=== PATIENT | female | born 2000 | race Two or more races ===

== ENCOUNTER 2022-02-09 17:25 | Emergency (ER) | payer BC, OTHER ==
[~2022-02-09] VITALS: Ht 162.6 cm; Wt 73.0 kg
[2022-02-09 17:36] VITALS: BP 146/83
[2022-02-09 18:57] LABS: Urine Bacteria FEW /hpf (None Seen); Urine Blood 3+ /uL (Negative); Urine Mucus FEW (None Seen); Urine Specific Gravity 1.025 (1.001-1.035); Urine WBC 20 /hpf (0 - 5)
== END 2022-02-09 20:48 | disposition home or self-care (01) ==
LOC: ER 17:25
DX: N93.9 Abnormal uterine and vaginal bleeding, unspecified (principal)
CPT/HCPCS: 81001; 81025